=== PATIENT | male | born 1965 ===

== ENCOUNTER 2021-01-24 11:51 | Outpatient (RCR) | payer OTHER, SELFPAY ==
[2021-01-24 12:43] VITALS: BMI 28.8
[2021-01-24 14:14] VITALS: BMI 28.8
== END 2021-04-15 12:03 | disposition home or self-care (01) ==
LOC: ANHDMC 11:51
PROVIDERS: PCP Nurse Practitioner Family; Visit Provider Internal Medicine Endocrinology, Diabetes & Metabolism
DX: E13.9 Other specified diabetes mellitus without complications (principal); Z71.3 Dietary counseling and surveillance
CPT/HCPCS: 97802